=== PATIENT | female | born 1990 | race Caucasian/White ===

== ENCOUNTER 2016-09-18 11:53 | Inpatient (IN) | payer MEDICAID, OTHER ==
[~2016-09-18] VITALS: Ht 160 cm; Wt 120.0 kg
[~2016-09-18 11:53] MED LIST: METO10TA PO; ZITH250T PO
[2016-09-18 11:55] VITALS: BP 143/95; PULSE 143; RESP 14; TEMP 101; O2SAT 97
--- NOTE | 2016-09-18 12:19 | PD ---
HPI Chief Complaint: Complaint Time Seen by Provider: 12:19 Travel History International Travel<30 days: No Contact w/Intl Traveler<30days: No Traveled to known affect area: No History of Present Illness HPI 26-year-old female with no significant medical history, presents to the emergency department for evaluation. Patient states she has had right flank pain worsening over the last week. She developed significant fever last evening with associated nausea. She went to her primary care providers today and was told that she had blood in her urine and that if things got worse to go to the emergency department. Patient states that her fever persists and she continues to have this right sided flank pain that is very painful. Patient states over the last week her urine had changed but has returned normal. She states otherwise she has had no urgency or frequency. No morena hematuria. States there is no possibility of . No other symptoms reported. PFSH Past Medical History Diminished Hearing: No ?: Not LMP: 08/27/16 : 3 Para: 3 Past Surgical History Section: Yes Cholecystectomy: Yes Social History Alcohol Use: Yes (OCC) Tobacco Use: No Substance Use: No Allergies-Medications (Allergen,Severity, Reaction): Coded Allergies: No Known Allergies (Unverified , 12/05/14) Reported Meds & Prescriptions Reported Meds & Active Scripts Active Review of Systems Except as stated in HPI: all other systems reviewed are Neg Physical Exam Narrative GENERAL: Well-nourished female patient, lying on the stretcher, in mild distress secondary to pain SKIN: Warm and dry. HEAD: Atraumatic. Normocephalic. EYES: Pupils equal and round. No scleral icterus. No injection or drainage. ENT: No nasal bleeding or discharge. Mucous membranes pink and moist. NECK: Trachea midline. No JVD. CARDIOVASCULAR: Tachycardic rate and rhythm. No murmur appreciated. RESPIRATORY: No accessory muscle use. Clear to auscultation. Breath sounds equal bilaterally. GASTROINTESTINAL: Abdomen soft, non-tender, nondistended. Hepatic and splenic margins not palpable. MUSCULOSKELETAL: No obvious deformities. No clubbing. No cyanosis. No edema. Right sided CVA tenderness. NEUROLOGICAL: Awake and alert. No obvious cranial nerve deficits. Motor grossly within normal limits. Normal speech. PSYCHIATRIC: Appropriate mood and affect; insight and judgment normal. Data Data Last Documented VS Vital Signs Date Time Temp Pulse Resp B/P Pulse Ox O2 Delivery O2 Flow Rate FiO2 09/18/16 14:24 100.5 127 18 137/90 99 Room Air Orders Complete Blood Count With Diff (09/18/16 12:17) Urinalysis - C+S If Indicated (09/18/16 12:17) Ketorolac Inj (Toradol Inj) (09/18/16 12:30) Ed Urine Pregnancytest Poc (09/18/16 12:17) Blood Culture (09/18/16 12:17) Lactic Acid Sepsis Protocol (09/18/16 12:17) Comprehensive Metabolic Panel (09/18/16 12:17) Urine Culture (09/18/16 12:24) Ceftriaxone Inj (Rocephin Inj) (09/18/16 13:30) Sodium Chlor 0.9% 1000 Ml Inj (Ns 1000 M (09/18/16 13:30) Sodium Chlor 0.9% 1000 Ml Inj (Ns 1000 M (09/18/16 13:30) Sodium Chlor 0.9% 1000 Ml Inj (Ns 1000 M (09/18/16 13:30) Chest, Single Ap (09/18/16 ) Ct Abd/Pel W/O Iv Contrast (09/18/16 ) Acetaminophen (Tylenol) (09/18/16 13:30) Admit Order (Ed Use Only) (09/18/16 15:24) Labs Laboratory Tests Test 09/18/16 09/18/16 12:24 12:32 Urine Color YELLOW Urine Turbidity CLOUDY Urine pH 5.5 Urine Specific [place] 1.015 Urine Protein 30 mg/dL Urine Glucose (UA) NEG mg/dL Urine Ketones NEG mg/dL Urine Occult Blood MOD Urine Nitrite POS Urine Bilirubin NEG Urine Urobilinogen LESS THAN 2.0 MG/DL Urine Leukocyte Esterase LARGE Urine RBC 35 /hpf Urine WBC /hpf Urine WBC Clumps MANY Urine Squamous Epithelial 5 /hpf Cells Urine Bacteria MANY /hpf Urine Mucus FEW /lpf Microscopic Urinalysis Comment CULTURE INDICATED White Blood Count 9.7 TH/MM3 Red Blood Count 4.52 MIL/MM3 Hemoglobin 12.8 GM/DL Hematocrit 38.4 % Mean Corpuscular Volume 84.9 FL Mean Corpuscular Hemoglobin 28.4 PG Mean Corpuscular Hemoglobin 33.5 % Concent Red Cell Distribution Width 15.3 % Platelet Count 175 TH/MM3 Mean Platelet Volume 10.1 FL Neutrophils (%) (Auto) 88.2 % Lymphocytes (%) (Auto) 6.2 % Monocytes (%) (Auto) 5.0 % Eosinophils (%) (Auto) 0.4 % Basophils (%) (Auto) 0.2 % Neutrophils # (Auto) 8.6 TH/MM3 Lymphocytes # (Auto) 0.6 TH/MM3 Monocytes # (Auto) 0.5 TH/MM3 Eosinophils # (Auto) 0.0 TH/MM3 Basophils # (Auto) 0.0 TH/MM3 CBC Comment DIFF FINAL Differential Comment Sodium Level 139 MEQ/L Potassium Level 3.4 MEQ/L Chloride Level 103 MEQ/L Carbon Dioxide Level 25.6 MEQ/L Anion Gap 10 MEQ/L Blood Urea Nitrogen 9 MG/DL Creatinine 0.93 MG/DL Estimat Glomerular Filtration 73 ML/MIN Rate Random Glucose 120 MG/DL Lactic Acid Level 1.9 mmol/L Calcium Level 8.2 MG/DL Total Bilirubin 0.4 MG/DL Aspartate Amino Transf 13 U/L (AST/SGOT) Alanine Aminotransferase 31 U/L (ALT/SGPT) Alkaline Phosphatase 65 U/L Total Protein 8.1 GM/DL Albumin 3.6 GM/DL MDM Medical Decision Making Medical Screen Exam Complete: Yes Emergency Medical Condition: Yes Medical Record Reviewed: Yes Differential Diagnosis Pyelonephritis versus renal calculi versus sepsis versus muscle strain versus spasm Narrative Course 26 year-old female presents to emergency department for evaluation of right sided flank pain with associated nausea and fever. Workup was initiated in triage. Once a medical bed becomes available, patient will be transferred and care assumed by Dr. dawn. Condition: Stable CondeBrock aquinoadelita LESTER Sep 18, 2016 12:19
[2016-09-18] MEDS ORDERED: KETOROLAC TROMETHAMINE 60 MG/2 ML (IM) VIAL IM ONE (12:30)
[2016-09-18 13:00] LABS: BACTERIA, URINE MANY /hpf; BLOOD, URINE MOD (NEG); GLUCOSE,URINE NEG (NEG); KETONE, URINE NEG (NEG); MUCUS URINE FEW /lpf (OCC); PH, URINE 5.5 (5.0-8.5); SQUAMOUS EPITHELIAL CELL URINE 5 /hpf (0-5); URINE COLOR YELLOW (YELLW/STRAW)
[2016-09-18 13:01] LABS: AUTOMATED NEUTROPHIL # 8.6 TH/MM3 (1.8-7.7); BASOPHIL % 0.2 % (0.0-2.0); EOSINOPHIL % 0.4 % (0.0-4.0); HEMATOCRIT 38.4 % (35.0-46.0); HEMO FLAGS DIFF FINAL; LYMPH % 6.2 % (9.0-44.0); LYMPHOCYTE # 0.6 TH/MM3 (1.0-4.8); MEAN CELL VOLUME 84.9 FL (80.0-100.0); MEAN CORPUSCULAR HEMOGLOBIN 28.4 PG (27.0-34.0); MEAN CORPUSCULAR HGB CONC 33.5 % (32.0-36.0); NEUT % 88.2 % (16.0-70.0); PLATELET COUNT 175 TH/MM3 (150-450); RED BLOOD COUNT 4.52 MIL/MM3 (4.00-5.30); RED CELL DISTRIBUTION WIDTH 15.3 % (11.6-17.2); WHITE BLOOD COUNT 9.7 TH/MM3 (4.0-11.0)
[2016-09-18 13:02] LABS: COMMENT (UR) CULTURE INDICATED; CULTURE IF INDICATED CULTURE INDICATED; NITRITE,URINE POS (NEG)
[2016-09-18 13:15] LABS: ANION GAP 10 MEQ/L (5-15); AST (GOT) 13 U/L (15-37); BICARBONATE 25.6 MEQ/L (21.0-32.0); BLOOD UREA NITROGEN 9 MG/DL (7-18); CHLORIDE 103 MEQ/L (98-107); GLOMERULAR FILTRATION RATE 73 ML/MIN (>89); POTASSIUM 3.4 MEQ/L (3.5-5.1); SODIUM (NA) 139 MEQ/L (136-145)
[2016-09-18 13:19] LABS: ALKALINE PHOSPHATASE 65 U/L (45-117); ALT (GPT) 31 U/L (10-53); TOTAL BILIRUBIN ADULT 0.4 MG/DL (0.2-1.0)
[2016-09-18] MEDS ORDERED: cefTRIAXone INJ 1,000 MG in SODIUM CHLORIDE 0.9% INJ 100 ML IV ONE (13:30)
[2016-09-18] MEDS ORDERED: ACETAMINOPHEN 325 MG TAB PO ONE (13:30)
[2016-09-18] MEDS ORDERED: SODIUM CHLOR 0.9% 1000 ML INJ 1,000 ML IV ONE ×3 (13:30)
--- NOTE | 2016-09-18 14:10 | RADRPT ---
EXAM DATE/TIME: 09/18/2016 13:57 [facility] COMPARISON: No previous studies available for comparison. INDICATIONS : Right flank abdominal pain today; evaluate for renal stone. ORAL CONTRAST: No oral contrast ingested. RADIATION DOSE: 8.53 CTDIvol (mGy) MEDICAL HISTORY : None SURGICAL HISTORY : Cholecystectomy. section. ENCOUNTER: Initial ACUITY: 1 day PAIN SCALE: 5/10 LOCATION: Right flank abdomen/pelvis TECHNIQUE: Volumetric scanning of the abdomen and pelvis was performed. Using automated exposure control and adjustment of the mA and/or kV according to patient size, radiation dose was kept as low as reasonably achievable to obtain optimal diagnostic quality images. FINDINGS: LOWER LUNGS: The visualized lower lungs are clear. LIVER: Homogeneous density without lesion. There is no dilation of the biliary tree. Clips in pl [place] prior cholecystectomy SPLEEN: Normal size without lesion. PANCREAS: Within normal limits. KIDNEYS: Normal in size and shape. There is no mass, stone, or hydronephrosis. ADRENAL GLANDS: Within normal limits. VASCULAR: There is no aortic aneurysm. BOWEL/MESENTERY: The stomach, small bowel, and colon demonstrate no acute abnormality. There is no free intraperitoneal air or fluid. ABDOMINAL WALL: Within normal limits. RETROPERITONEUM: There is no lymphadenopathy. BLADDER: No wall thickening or mass. REPRODUCTIVE: Within normal limits. INGUINAL: There is no lymphadenopathy or hernia. MUSCULOSKELETAL: Within normal limits for patient age. CONCLUSION: Prior cholecystectomy. Otherwise negative. Normal kidneys, ureters and bladder with n o evidence of renal or ureteral calculi or obstructive uropathy Darren Rothman MD on September 18, 2016 at 14:06 Board Certified Radiologist. This report was verified electronically.
--- NOTE | 2016-09-18 14:20 | RADRPT ---
EXAM DATE/TIME: 09/18/2016 14:12 [facility] COMPARISON: CT PULMONARY ANGIOGRAM, December 05, 2014, 5:30. INDICATIONS : Shortness of breath. MEDICAL HISTORY : None. SURGICAL HISTORY : None. ENCOUNTER: Initial ACUITY: 1 week PAIN SCORE: 0/10 LOCATION: Bilateral chest FINDINGS: A single view of the chest demonstrates the lungs to be symmetrically aerated without evidence of mas s, infiltrate or effusion. The cardiomediastinal contours are unremarkable. Osseous structures are intact. CONCLUSION: No acute disease. Darren Rothman MD on September 18, 2016 at 14:18 Board Certified Radiologist. This report was verified electronically.
[2016-09-18 14:24] VITALS: BP 137/90; PULSE 127; RESP 18; TEMP 100.5; O2SAT 99
--- NOTE | 2016-09-18 14:26 | PD ---
HPI Chief Complaint: Complaint Time Seen by Provider: 13:16 Travel History International Travel<30 days: No Contact w/Intl Traveler<30days: No Traveled to known affect area: No History of Present Illness HPI 26yo F with PMH of obesity here with c/o fever and back pain since yesterday. Pt was at her PMD's office and found to have a urine infection and given a shot of medication. Pt states she felt dizzy and very unwell so came straight to the ED after. Pt has been on a weight loss medication phenagen for 1 month. States pain is mainly in her right back and upper back. +Dry cough. Denies any chest pain, sob, abdominal pain, diarrhea, vaginal bleeding or discharge. PFSH Past Medical History Diminished Hearing: No ?: Not LMP: 08/27/16 : 3 Para: 3 Past Surgical History Section: Yes Cholecystectomy: Yes Social History Alcohol Use: Yes (OCC) Tobacco Use: No Substance Use: No Allergies-Medications (Allergen,Severity, Reaction): Coded Allergies: No Known Allergies (Unverified , 12/05/14) Reported Meds & Prescriptions Reported Meds & Active Scripts Active Review of Systems Except as stated in HPI: all other systems reviewed are Neg Physical Exam Narrative GENERAL: 26yo F in mild distress. SKIN: Warm and diaphoretic. HEAD: Atraumatic. Normocephalic. EYES: Pupils equal and round. No scleral icterus. No injection or drainage. ENT: Throat: Clear. NECK: Trachea midline. No JVD. CARDIOVASCULAR: Regular rate and rhythm. No murmur appreciated. RESPIRATORY: No accessory muscle use. Clear to auscultation. Breath sounds equal bilaterally. GASTROINTESTINAL: Abdomen soft, non-tender, nondistended. No rebound tenderness or guarding. BACK: +CVA tenderness right. +Mid paraspinal T4-5 bilaterally. MUSCULOSKELETAL: No obvious deformities. No clubbing. No cyanosis. No edema. NEUROLOGICAL: Awake and alert. No obvious cranial nerve deficits. Motor grossly within normal limits. Normal speech. PSYCHIATRIC: Appropriate mood and affect; insight and judgment normal. Data Data Last Documented VS Vital Signs Date Time Temp Pulse Resp B/P Pulse Ox O2 Delivery O2 Flow Rate FiO2 09/18/16 14:24 100.5 127 18 137/90 99 Room Air Orders Complete Blood Count With Diff (09/18/16 12:17) Urinalysis - C+S If Indicated (09/18/16 12:17) Ketorolac Inj (Toradol Inj) (09/18/16 12:30) Ed Urine Pregnancytest Poc (09/18/16 12:17) Blood Culture (09/18/16 12:17) Lactic Acid Sepsis Protocol (09/18/16 12:17) Comprehensive Metabolic Panel (09/18/16 12:17) Urine Culture (09/18/16 12:24) Ceftriaxone Inj (Rocephin Inj) (09/18/16 13:30) Sodium Chlor 0.9% 1000 Ml Inj (Ns 1000 M (09/18/16 13:30) Sodium Chlor 0.9% 1000 Ml Inj (Ns 1000 M (09/18/16 13:30) Sodium Chlor 0.9% 1000 Ml Inj (Ns 1000 M (09/18/16 13:30) Chest, Single Ap (09/18/16 ) Ct Abd/Pel W/O Iv Contrast (09/18/16 ) Acetaminophen (Tylenol) (09/18/16 13:30) Admit Order (Ed Use Only) (09/18/16 15:24) Labs Laboratory Tests Test 09/18/16 09/18/16 12:24 12:32 Urine Color YELLOW Urine Turbidity CLOUDY Urine pH 5.5 Urine Specific [place] 1.015 Urine Protein 30 mg/dL Urine Glucose (UA) NEG mg/dL Urine Ketones NEG mg/dL Urine Occult Blood MOD Urine Nitrite POS Urine Bilirubin NEG Urine Urobilinogen LESS THAN 2.0 MG/DL Urine Leukocyte Esterase LARGE Urine RBC 35 /hpf Urine WBC /hpf Urine WBC Clumps MANY Urine Squamous Epithelial 5 /hpf Cells Urine Bacteria MANY /hpf Urine Mucus FEW /lpf Microscopic Urinalysis Comment CULTURE INDICATED White Blood Count 9.7 TH/MM3 Red Blood Count 4.52 MIL/MM3 Hemoglobin 12.8 GM/DL Hematocrit 38.4 % Mean Corpuscular Volume 84.9 FL Mean Corpuscular Hemoglobin 28.4 PG Mean Corpuscular Hemoglobin 33.5 % Concent Red Cell Distribution Width 15.3 % Platelet Count 175 TH/MM3 Mean Platelet Volume 10.1 FL Neutrophils (%) (Auto) 88.2 % Lymphocytes (%) (Auto) 6.2 % Monocytes (%) (Auto) 5.0 % Eosinophils (%) (Auto) 0.4 % Basophils (%) (Auto) 0.2 % Neutrophils # (Auto) 8.6 TH/MM3 Lymphocytes # (Auto) 0.6 TH/MM3 Monocytes # (Auto) 0.5 TH/MM3 Eosinophils # (Auto) 0.0 TH/MM3 Basophils # (Auto) 0.0 TH/MM3 CBC Comment DIFF FINAL Differential Comment Sodium Level 139 MEQ/L Potassium Level 3.4 MEQ/L Chloride Level 103 MEQ/L Carbon Dioxide Level 25.6 MEQ/L Anion Gap 10 MEQ/L Blood Urea Nitrogen 9 MG/DL Creatinine 0.93 MG/DL Estimat Glomerular Filtration 73 ML/MIN Rate Random Glucose 120 MG/DL Lactic Acid Level 1.9 mmol/L Calcium Level 8.2 MG/DL Total Bilirubin 0.4 MG/DL Aspartate Amino Transf 13 U/L (AST/SGOT) Alanine Aminotransferase 31 U/L (ALT/SGPT) Alkaline Phosphatase 65 U/L Total Protein 8.1 GM/DL Albumin 3.6 GM/DL [facility] Medical Decision Making Medical Screen Exam Complete: Yes Emergency Medical Condition: Yes Differential Diagnosis Urosepsis vs. pyelonephritis vs. medication related autonomic instability. Narrative Course 26yo F with SIRS and back pain. Temperature was initially 101F and tachycardic at 143bpm. Labs reviewed, no leukocytosis, although 88.2% neutrophil. K: 3.4. Lactic acid 1.9. UA showed positive nitrite and moderated blood. Pt given ceftriaxone 1gm IV. CTa/p negative for renal or ureteral calculi or obstructive uropathy. CXR negative. Pt ordered NS IVF x3 and toradol of 60m IM. Pt given acetaminophen 650mg PO for fever. Will admit pt for urosepsis. Diagnosis Primary Impression: Sepsis Qualified Code: A41.9 - Sepsis, due to unspecified organism Admitting Information Admitting Physician Requests: Admit Condition: Stable Stefani Sauceda Sep 18, 2016 14:26
--- NOTE | 2016-09-18 15:38 | HHI.HP ---
[facility] Service Family Medicine Primary Care Physician Hyacinth Eng MD Admission Diagnosis Urosepsis Diagnoses: International Travel<30 Days: No Contact w/Intl Traveler<30days: No Known Affected Area: No History of Present Illness Patient is an otherwise healthy 26-year-old female who presented here today due to fever and feelings of malaise. Yesterday afternoon she developed a fever which she treated with ibuprofen and had improvement in her symptoms. She then had a recurrence of fever overnight but again improved with Advil. This morning she went to her PCP which she was treated with Rocephin. However due to continued symptoms of feeling unwell and back pain, she presented to the ED for further evaluation. Patient reports that she was most worried about her back pain as this frequently feels like her pneumonia. Denies cough, nausea/ vomiting, change in appetite, dysuria. Does report a history of increased pelvic pressure that had improved with OTC Azo. Patient otherwise has no complaints. Review of Systems Constitutional: COMPLAINS OF: Fatigue, Fever, Chills, DENIES: Change in appetite Eyes: DENIES: Blurred vision Ears, nose, mouth, throat: DENIES: Hoarseness, Running Nose Respiratory: DENIES: Cough, Shortness of breath Cardiovascular: DENIES: Chest pain, Palpitations, Lower Extremity Edema Gastrointestinal: DENIES: Abdominal pain, Diarrhea, Nausea, Vomiting Genitourinary: DENIES: Hematuria, Dysuria Musculoskeletal: COMPLAINS OF: Back pain Integumentary: DENIES: Rash Neurologic: DENIES: Localized weakness Past Family Social History Past Medical History Denies Past Surgical History 3 Cholecystectomy Allergies: Coded Allergies: No Known Allergies (Unverified , 12/05/14) Family History Mother: Healthy Father: Healthy Social History Lives with and 3 children Alcohol: Only on special occasions Tobacco: Denies Illicit: Denies Physical Exam Vital Signs Vital Signs Date Time Temp Pulse Resp B/P Pulse Ox O2 Delivery O2 Flow Rate FiO2 09/18/16 14:24 100.5 127 18 137/90 99 Room Air 09/18/16 11:55 101.0 143 14 143/95 97 Room Air Physical Exam GENERAL: This is a well-nourished, well-developed patient, in no apparent distress. SKIN: No rashes, ecchymoses or lesions. Cool and dry. HEAD: Atraumatic. Normocephalic. No temporal or scalp tenderness. EYES: Pupils equal round and reactive. Extraocular motions intact. No scleral icterus. No injection or drainage. ENT: Nose without bleeding, purulent drainage or septal hematoma. Throat without erythema, tonsillar hypertrophy or exudate. Uvula midline. Airway patent. NECK: Trachea midline. No JVD or lymphadenopathy. Supple, nontender, no meningeal signs. CARDIOVASCULAR: Regular rate and rhythm without murmurs, gallops, or rubs. RESPIRATORY: Clear to auscultation. Breath sounds equal bilaterally. No wheezes , rales, or rhonchi. GASTROINTESTINAL: Abdomen soft, non-tender, nondistended. No hepato-splenomegaly , or palpable masses. No guarding. MUSCULOSKELETAL: Extremities without clubbing, cyanosis, or edema. No joint tenderness, effusion, or edema noted. No calf tenderness. Negative Homans sign bilaterally. NEUROLOGICAL: Awake and alert. Cranial nerves II through XII intact. Motor and sensory grossly within normal limits. Five out of 5 muscle strength in all muscle groups. Normal speech. Laboratory Laboratory Tests Test 09/18/16 09/18/16 12:24 12:32 Urine Color YELLOW Urine Turbidity CLOUDY Urine pH 5.5 Urine Specific [place] 1.015 Urine Protein 30 Urine Glucose (UA) NEG Urine Ketones NEG Urine Occult Blood MOD Urine Nitrite POS Urine Bilirubin NEG Urine Urobilinogen LESS THAN 2.0 Urine Leukocyte Esterase LARGE Urine RBC 35 Urine WBC Urine WBC Clumps MANY Urine Squamous Epithelial 5 Cells Urine Bacteria MANY Urine Mucus FEW Microscopic Urinalysis Comment CULTURE INDICATED White Blood Count 9.7 Red Blood Count 4.52 Hemoglobin 12.8 Hematocrit 38.4 Mean Corpuscular Volume 84.9 Mean Corpuscular Hemoglobin 28.4 Mean Corpuscular Hemoglobin 33.5 Concent Red Cell Distribution Width 15.3 Platelet Count 175 Mean Platelet Volume 10.1 Neutrophils (%) (Auto) 88.2 Lymphocytes (%) (Auto) 6.2 Monocytes (%) (Auto) 5.0 Eosinophils (%) (Auto) 0.4 Basophils (%) (Auto) 0.2 Neutrophils # (Auto) 8.6 Lymphocytes # (Auto) 0.6 Monocytes # (Auto) 0.5 Eosinophils # (Auto) 0.0 Basophils # (Auto) 0.0 CBC Comment DIFF FINAL Differential Comment Sodium Level 139 Potassium Level 3.4 Chloride Level 103 Carbon Dioxide Level 25.6 Anion Gap 10 Blood Urea Nitrogen 9 Creatinine 0.93 Estimat Glomerular Filtration 73 Rate Random Glucose 120 Lactic Acid Level 1.9 Calcium Level 8.2 Total Bilirubin 0.4 Aspartate Amino Transf 13 (AST/SGOT) Alanine Aminotransferase 31 (ALT/SGPT) Alkaline Phosphatase 65 Total Protein 8.1 Albumin 3.6 Date/Time Procedure Status Source Growth 09/18/16 12:35 Aerobic Blood Culture Received Blood Peripheral Pending 09/18/16 12:35 Anaerobic Blood Culture Received Blood Peripheral Pending 09/18/16 12:24 Urine Culture Received Urine Clean Catch Pending Result Diagram: 09/18/16 1232 09/18/16 1232 Imaging Last Impressions Chest X-Ray 09/18/16 0000 Signed Impressions: Service Date/Time: Sunday, September 18, 2016 14:12 - CONCLUSION: No acute disease. Darren Rothman MD Abdomen/Pelvis CT 09/18/16 0000 Signed Impressions: Service Date/Time: Sunday, September 18, 2016 13:57 - CONCLUSION: Prior cholecystectomy. Otherwise negative. Normal kidneys, ureters and bladder with no evidence of renal or ureteral calculi or obstructive uropathy Darren Rothman MD Assessment and Plan Assessment and Plan Otherwise healthy 26-year-old female who is admitted for urosepsis. Code Status Full Discussed Condition With Dr. Mejia Problem List: (1) UTI (urinary tract infection) Status: Acute Plan: Found to have UTI with positive nitrates on UA. No leukocytosis but patient presented with tachycardia and fever. Otherwise patient is clinically stable. Of note tachycardia may be due to herbal supplement that patient takes for weight loss. -EKG ordered -Monitor I&O -Urine and blood culture pending -Lactic acid WNL Imaging: * CXR unremarkable * Abdominal CT: Normal kidneys, ureters, bladder. No evidence of renal or ureteral stones or obstructive uropathy. Medications: * Rocephin 09/18- (2) Sepsis Status: Acute Plan: Meet sepsis criteria based on fever and tachycardia. See plan above (3) Nutrition, metabolism, and development symptoms Status: Acute Plan: Diet: Regular Electrolytes: Mild hyponatremia, replaced with 20 in Meq Fluids: NS at 125 DVT prophylaxis: Lovenox GI prophylaxis: Not indicated Physician Certification 2 Midnight Certification Type: Admission for Inpatient Services Order for Inpatient Services The services are ordered in accordance with Medicare regulations or non- Medicare payer requirements, as applicable. In the case of services not specified as inpatient-only, they are appropriately provided as inpatient services in accordance with the 2-midnight benchmark. Estimated LOS (days): 2 days is the estimated time the patient will need to remain in the hospital, assuming treatment plan goals are met and no additional complications. Post-Hospital Plan: Home ThomasLee Ann Estrada MD R2 Sep 18, 2016 15:38
[2016-09-18] MEDS ORDERED: ONDANSETRON HCL 4 MG/2 ML VIAL IVP PRN (16:15)
[2016-09-18] MEDS ORDERED: NALOXONE HCL 0.4 MG/ML AMP IV PRN ×2 (16:15)
[2016-09-18] MEDS ORDERED: ACETAMINOPHEN/HYDROcodone 325 MG/7.5 MG TAB PO PRN (16:15)
[2016-09-18] MEDS ORDERED: ENALAPRILAT 1.25 MG/ML VIAL IV PRN (16:15)
[2016-09-18] MEDS ORDERED: ACETAMINOPHEN/HYDROcodone 325 MG/5 MG TAB PO PRN (16:15)
[2016-09-18] MEDS ORDERED: SODIUM CHLORIDE 0.9% FLUSH 5 ML FLUSH FLUSH PRN (16:15)
[2016-09-18] MEDS ORDERED: ACETAMINOPHEN 325 MG TAB PO PRN (16:15)
[2016-09-18 16:24] VITALS: BP 156/72; PULSE 125; RESP 18
[2016-09-18] MEDS: SODIUM CHLOR 0.9% 1000 ML INJ 1,000 ML IV SCH ×2 (16:35→19:12)
[2016-09-18] MEDS ORDERED: ENOXAPARIN SODIUM 40 MG/0.4 ML SYRINGE SQ SCH (17:00)
[2016-09-18 19:09] VITALS: BP 128/65; PULSE 75; PULSE 95; RESP 18; TEMP 98.5; O2SAT 100
[2016-09-18 20:04] VITALS: BP 135/91; PULSE 100; RESP 20; TEMP 99.1; O2SAT 98
[2016-09-18] MEDS: SODIUM CHLORIDE 0.9% FLUSH 5 ML FLUSH FLUSH SCH (21:00)
[2016-09-19] MEDS: SODIUM CHLOR 0.9% 1000 ML INJ 1,000 ML IV SCH ×2 (00:19→09:28)
[2016-09-19 01:17] VITALS: BP 131/79; PULSE 76; RESP 18; TEMP 98.2; O2SAT 97
[2016-09-19 05:24] LABS: AUTOMATED NEUTROPHIL # 4.9 TH/MM3 (1.8-7.7); BASOPHIL % 0.4 % (0.0-2.0); EOSINOPHIL # 0.2 TH/MM3 (0-0.4); EOSINOPHIL % 2.1 % (0.0-4.0); HEMATOCRIT 32.6 % (35.0-46.0); HEMO FLAGS DIFF FINAL; LYMPH % 19.2 % (9.0-44.0); LYMPHOCYTE # 1.5 TH/MM3 (1.0-4.8); MEAN CELL VOLUME 85.8 FL (80.0-100.0); MEAN CORPUSCULAR HEMOGLOBIN 28.1 PG (27.0-34.0); MEAN CORPUSCULAR HGB CONC 32.8 % (32.0-36.0); NEUT % 62.3 % (16.0-70.0); PLATELET COUNT 145 TH/MM3 (150-450); RED CELL DISTRIBUTION WIDTH 15.2 % (11.6-17.2); WHITE BLOOD COUNT 7.8 TH/MM3 (4.0-11.0)
--- NOTE | 2016-09-19 05:41 | EKG ---
Date Performed: 09/18/2016 Time Performed: 19:28:24 PTAGE: 26 years EKG: Sinus rhythm NORMAL ECG COMPARED TO PRIOR ELECTROCARDIOGRAM, Rate has slowed. PREVIOUS TRACING : 12/05/2014 04.24 DOCTOR: Reji Zavala Interpretating Date/Time 09/19/2016 05:40:39
[2016-09-19 05:48] LABS: BICARBONATE 24.6 MEQ/L (21.0-32.0); POTASSIUM 3.7 MEQ/L (3.5-5.1)
[2016-09-19 07:15] VITALS: BP 118/66; PULSE 85; RESP 20; TEMP 98.4; O2SAT 100
[2016-09-19] MEDS ORDERED: POTASSIUM CHLORIDE 10 MEQ CONTROLLED RELEASE TAB PO SCH (09:00)
[2016-09-19] MEDS: SODIUM CHLORIDE 0.9% FLUSH 5 ML FLUSH FLUSH SCH (09:00)
[2016-09-19 11:31] VITALS: BP 120/58; PULSE 94; RESP 20; TEMP 98.8; O2SAT 99
[2016-09-19] MEDS ORDERED: CIPR-9 PO (13:42)
--- NOTE | 2016-09-19 13:43 | HHI.DCPOC ---
Discharge Care Plan Diagnosis: (1) UTI (urinary tract infection) (2) Sepsis Goals to Promote Your Health * To prevent worsening of your condition and complications * To maintain your health at the optimal level Directions to Meet Your Goals Take your medications as prescribed Follow your dietary instruction Follow activity as directed Keep your appointments as scheduled Take your immunizations and boosters as scheduled If your symptoms worsen call your PCP, if no PCP go to Urgent Care Center or Emergency Room Smoking is Dangerous to Your Health. Avoid second hand smoke Call the 24-hour hour crisis hotline for domestic abuse at Lee Ann Negrete MD R2 Sep 19, 2016 13:43
--- NOTE | 2016-09-19 13:54 | HHI.FPPN ---
Subjective Remarks No acute events overnight. VS unremarkable with an improved pulse. This morning patient states that she is ready to go. Denies any abdominal pain, dysuria, urinary hesitancy. Endorses a good diet. Objective Vitals Vital Signs Date Time Temp Pulse Resp B/P Pulse Ox O2 Delivery O2 Flow Rate FiO2 09/19/16 11:31 98.8 94 20 120/58 99 09/19/16 07:15 98.4 85 20 118/66 100 09/19/16 01:17 98.2 76 18 131/79 97 09/18/16 20:04 99.1 100 20 135/91 98 09/18/16 19:09 98.5 95 18 128/65 100 Room Air 09/18/16 16:24 125 18 156/72 09/18/16 14:24 100.5 127 18 137/90 99 Room Air Result Diagram: 09/19/16 0503 09/19/16 0503 Objective Remarks GENERAL: This is a well-nourished, well-developed patient, in no apparent distress. CARDIOVASCULAR: Regular rate and rhythm without murmurs, gallops, or rubs. RESPIRATORY: Clear to auscultation. Breath sounds equal bilaterally. No wheezes , rales, or rhonchi. GASTROINTESTINAL: Abdomen soft, non-tender, nondistended. No hepato-splenomegaly , or palpable masses. No guarding. MUSCULOSKELETAL: Extremities without clubbing, cyanosis, or edema. No calf tenderness. Negative Homans sign bilaterally. NEUROLOGICAL: Awake and alert. Normal speech. A/P Assessment and Plan Otherwise healthy 26-year-old female who is admitted for urosepsis. Discharge Planning Today with cipro sdw Dr. Hester and Dr. Stanton Problem List: (1) UTI (urinary tract infection) Status: Acute Plan: Found to have UTI with positive nitrates on UA. No leukocytosis but patient presented with tachycardia and fever. Patient is clinically stable with an improved tachycardia. -EKG shows sinus rhythm -Urine culture pending -Blood culture negative x1 day -Lactic acid WNL Imaging: * CXR unremarkable * Abdominal CT: Normal kidneys, ureters, bladder. No evidence of renal or ureteral stones or obstructive uropathy. Medications: * Rocephin 09/18-09/19, will discharge on cipro for 7 days. (2) Sepsis Status: Resolved Plan: Meet sepsis criteria based on fever and tachycardia. See plan above (3) Nutrition, metabolism, and development symptoms Status: Acute Plan: Diet: Regular Electrolytes: unremarkable. Fluids: NS at 125 DVT prophylaxis: Lovenox GI prophylaxis: Not indicated Problem Qualifiers (1) Sepsis: Qualified Code: A41.9 - Sepsis, due to unspecified organism Lee Ann Negrete MD R2 Sep 19, 2016 13:54
[2016-09-19] MEDS ORDERED: cefTRIAXone INJ 1,000 MG in SODIUM CHLORIDE 0.9% INJ 100 ML IV SCH (14:00)
--- NOTE | 2016-09-19 16:01 | HHI.FPPN ---
Subjective Remarks Attending note: Patient seen and examined with the resident team. 26-year-old woman admitted with febrile presenting urinary tract infection presenting to her primary physician with suprapubic pressure, temperature 101. No dysuria or frequency. Patient did receive IM antibiotics prior to presentation. Refer to resident history and physical for complete discussion of past medical history, social history family history and review of systems. Objective Vitals Vital Signs Date Time Temp Pulse Resp B/P Pulse Ox O2 Delivery O2 Flow Rate FiO2 09/19/16 11:31 98.8 94 20 120/58 99 09/19/16 07:15 98.4 85 20 118/66 100 09/19/16 01:17 98.2 76 18 131/79 97 09/18/16 20:04 99.1 100 20 135/91 98 09/18/16 19:09 98.5 95 18 128/65 100 Room Air 09/18/16 16:24 125 18 156/72 Result Diagram: 09/19/16 0503 09/19/16 0503 Objective Remarks GENERAL: This is a well-nourished, well-developed patient, in no apparent distress. CARDIOVASCULAR: Regular rate and rhythm without murmurs, gallops, or rubs. RESPIRATORY: Clear to auscultation. Breath sounds equal bilaterally. No wheezes , rales, or rhonchi. GASTROINTESTINAL: Abdomen soft, non-tender, nondistended. No hepato-splenomegaly , or palpable masses. No guarding. MUSCULOSKELETAL: Calves are supple, feet are warm and dry. NEUROLOGICAL: Awake and alert. Normal speech. Grossly normal neurologic exam. Labs reviewed including urinalysis revealing pyuria and hematuria. A/P Assessment and Plan Clinical assessment: Patient seen and examined. Case reviewed and discussed with resident team. Agree with plan of care as discussed with me and documented in the resident note. Working diagnosis of urinary tract infection with fever and presumed early pyelonephritis. the cultures may be negative with her having received antibiotics prior to admission. Discharge Planning Today with [facility] Dr. Hester and Dr. Stanton Problem List: (1) UTI (urinary tract infection) Status: Acute Plan: Found to have UTI with positive nitrates on UA. No leukocytosis but patient presented with tachycardia and fever. Patient is clinically stable with an improved tachycardia. -EKG shows sinus rhythm -Urine culture pending -Blood culture negative x1 day -Lactic acid WNL Imaging: * CXR unremarkable * Abdominal CT: Normal kidneys, ureters, bladder. No evidence of renal or ureteral stones or obstructive uropathy. Medications: * Rocephin 09/18-09/19, will discharge on cipro for 7 days. (2) Sepsis Status: Resolved Plan: Meet sepsis criteria based on fever and tachycardia. See plan above (3) Nutrition, metabolism, and development symptoms Status: Acute Plan: Diet: Regular Electrolytes: unremarkable. Fluids: NS at 125 DVT prophylaxis: Lovenox GI prophylaxis: Not indicated Problem Qualifiers (1) Sepsis: Qualified Code: A41.9 - Sepsis, due to unspecified organism Abner Stanton MD Sep 19, 2016 16:01
== END 2016-09-19 14:51 | disposition home or self-care (01) | DRG 872 ==
LOC: NEPC 11:53 → NEDA 15:25 → NEPFCDU 20:18
PROVIDERS: ADMIT Family Medicine; ATTEND Family Medicine
DX: A41.9 Sepsis, unspecified organism (principal); E87.1 Hypo-osmolality and hyponatremia; N12 Tubulo-interstitial nephritis, not specified as acute or chronic
CPT/HCPCS: 71010; 74176; 80048; 80053; 81001; 83605; 84703; 85025; 87040; 87086; 93005; 96365; 96372; J0696; J1650; J1885; J7030